=== PATIENT | male | born 1970 | race Caucasian/White ===

== ENCOUNTER → 2020-11-05 | Outpatient (CLI) | payer OTHER | LOC: LAB SHORT 16:02 | PROVIDERS: Physician Assistant | DX: Z11.3 Encounter for screening for infections with a predominantly sexual mode of transmission (principal) | CPT/HCPCS: 87491; 87591 ==

== ENCOUNTER → 2020-11-07 | Outpatient (CLI) | payer SELFPAY | END | disposition home or self-care (01) | LOC: LAB SHORT 09:55 | DX: J02.9 Acute pharyngitis, unspecified (principal) | CPT/HCPCS: 87081 ==

== ENCOUNTER 2021-10-14 19:47 | Emergency (ER) | payer BC ==
[~2021-10-14] VITALS: Ht 182.9 cm; Wt 119.8 kg
[2021-10-14 20:20] LABS: BASOPHILS ABSOLUTE AUTO 0.08 K/mm3 (0.00-0.23); BASOPHILS PERCENT AUTO 1 % (0-2); EOSINOPHILS ABSOLUTE AUTO 0.01 K/mm3 (0.00-0.68); EOSINOPHILS PERCENT AUTO 0 % (0-6); IMMATURE GRAN ABSOLUTE AUTO 0.05 K/mm3 (0.00-0.10); IMMATURE GRAN PERCENT AUTO 0 % (0-1); LYMPHOCYTES ABSOLUTE AUTO 2.76 K/mm3 (0.84-5.20); LYMPHOCYTES PERCENT AUTO 22 % (21-46); MONOCYTES ABSOLUTE AUTO 1.07 K/mm3 (0.16-1.47); MONOCYTES PERCENT AUTO 9 % (4-13); Mean Corpuscular HGB 27.3 pg (26.0-34.0); Mean Corpuscular HGB Conc 32.2 g/dL (31.5-36.5); Mean Corpuscular Volume 85 fL (80-100); NEUTROPHILS ABSOLUTE AUTO 8.39 K/mm3 (1.96-9.15); NEUTROPHILS PERCENT AUTO 68 % (41-73); Platelet Count 285 K/mm3 (150-400); RDW Coefficient Variation 19.2 % (11.7-14.2); RDW Standard Deviation 55.4 fL (35.1-46.3); White Blood Cell Count 12.36 K/mm3 (4.00-11.30)
[2021-10-14 20:23] LABS: Hematocrit 55.9 % (37.0-53.0)
[2021-10-14 20:37] LABS: Albumin, Blood 3.4 g/dL (3.4-5.0); Albumin/Globulin Ratio 0.9 (0.8-1.8); Bilirubin, Total 0.8 mg/dL (0.1-1.0); Bun/Creatinine Ratio 14.1 (12.0-20.0); Calcium, Blood 9.2 mg/dL (8.5-10.1); Creatinine, Blood 1.28 mg/dL (0.60-1.20); Globulin, Blood 3.8 g/dL (2.2-4.0); Potassium, Blood 3.6 mmol/L (3.5-5.5); Total Protein, Blood 7.2 g/dL (6.4-8.2)
== END 2021-10-15 01:34 | disposition home or self-care (01) ==
LOC: ER 19:47
PROVIDERS: Physician Assistant
DX: R07.89 Other chest pain (principal)
CPT/HCPCS: 36415; 71045; 71260; 80053; 83880; 84484; 85025; 93005; 93010; J1885; J7030; Q9967

== ENCOUNTER 2023-06-04 06:53 | Inpatient (IN) | payer BC ==
[2023-06-04] VITALS (7 sets, daily range): BP systolic 103–134; BP diastolic 79–100
[~2023-06-04] VITALS: Ht 185.4 cm; Wt 123.7 kg
[2023-06-04] MEDS ORDERED: AMLO5 PO (07:10)
[2023-06-04] MEDS ORDERED: ZOLP12.5 PO (07:10)
[2023-06-04] MEDS ORDERED: LOSA25 PO (07:10)
[2023-06-04] MEDS ORDERED: TOPROL XL200 MG PO (07:11)
[2023-06-04] MEDS ORDERED: AMLO10 (07:11)
[2023-06-04] MEDS ORDERED: DIVA500EC PO (07:16)
[2023-06-04] MEDS ORDERED: DICL75ER PO (07:17)
[2023-06-04 07:19] LABS: BASOPHILS PERCENT AUTO 1 % (0-2); EOSINOPHILS ABSOLUTE AUTO 0.05 K/mm3 (0.00-0.68); EOSINOPHILS PERCENT AUTO 0 % (0-6); Hemoglobin 17.7 g/dL (13.5-17.5); IMMATURE GRAN ABSOLUTE AUTO 0.07 K/mm3 (0.00-0.10); IMMATURE GRAN PERCENT AUTO 1 % (0-1); LYMPHOCYTES ABSOLUTE AUTO 2.42 K/mm3 (0.84-5.20); LYMPHOCYTES PERCENT AUTO 19 % (21-46); MONOCYTES ABSOLUTE AUTO 1.01 K/mm3 (0.16-1.47); MONOCYTES PERCENT AUTO 8 % (4-13); Mean Corpuscular HGB 29.2 pg (26.0-34.0); Mean Corpuscular HGB Conc 32.1 g/dL (31.5-36.5); Mean Corpuscular Volume 91 fL (80-100); Mean Platelet Volume 10.2 fL (9.1-12.4); NEUTROPHILS ABSOLUTE AUTO 9.09 K/mm3 (1.96-9.15); NEUTROPHILS PERCENT AUTO 71 % (41-73); Platelet Count 296 K/mm3 (150-400); RDW Coefficient Variation 16.3 % (11.7-14.2); RDW Standard Deviation 54.7 fL (35.1-46.3); Red Blood Cell Count 6.06 M/mm3 (4.30-5.90); White Blood Cell Count 12.74 K/mm3 (4.00-11.30)
[2023-06-04 07:21] LABS: Hematocrit 55.1 % (37.0-53.0)
[2023-06-04] MEDS ORDERED: NS 1,000 ML IV SCH (07:25)
[2023-06-04] MEDS ORDERED: dilTIAZem HCL 125 MG in Dextrose 5% 100 ML IV SCH (07:25)
[2023-06-04] MEDS ORDERED: Diltiazem HCl 5 MG / ML 5ML Vial IV ONE (07:25)
[2023-06-04 07:37] LABS: Albumin, Blood 3.3 g/dL (3.4-5.0); Albumin/Globulin Ratio 0.8 (0.8-1.8); Bilirubin, Total 0.7 mg/dL (0.1-1.0); Bun/Creatinine Ratio 17.8 (12.0-20.0); Calcium, Blood 8.8 mg/dL (8.5-10.1); Creatinine, Blood 1.35 mg/dL (0.60-1.20); Globulin, Blood 4.1 g/dL (2.2-4.0); Potassium, Blood 3.8 mmol/L (3.5-5.5); Total Protein, Blood 7.4 g/dL (6.4-8.2)
[2023-06-04] MEDS ORDERED: Furosemide 10 MG / ML 2ML Vial IV ONE (09:20)
[2023-06-04] MEDS ORDERED: Acetaminophen 325 MG TABLET PO PRN (11:10)
[2023-06-04] MEDS ORDERED: Zolpidem Tartrate 10 MG Tab PO PRN (11:40)
[2023-06-04] MEDS ORDERED: Empagliflozin 10 MG TAB PO SCH (12:00)
[2023-06-04] MEDS ORDERED: Furosemide 10 MG / ML 2ML Vial IV SCH (12:00)
[2023-06-04] MEDS ORDERED: Potassium Chloride 20 MEQ TabCR PO ONE (12:00)
[2023-06-04] MEDS ORDERED: Metoprolol Tartrate 25 MG Tab PO SCH (12:00)
[2023-06-04] MEDS ORDERED: Metoprolol Tartrate 50 MG Tab PO SCH (12:00)
[2023-06-04] MEDS ORDERED: Divalproex Sodium 500 MG TABLET.DR PO SCH (12:00)
[2023-06-04 12:45] LABS: Anti-Xa UFH, PHA Monitoring <0.10 IU/mL; International Normalized Ratio 1.07; Prothrombin Time Results 11.4 Sec (9.7-11.5)
[2023-06-04] MEDS ORDERED: Dose Adjust by Pharmacy XX STA (12:57)
[2023-06-04] MEDS ORDERED: Heparin Sodium 5000 Units/ML 1ML MDV IV ONE (13:00)
[2023-06-04] MEDS ORDERED: Heparin Sodium,Porcine/0.5 NS 500 ML IV SCH (13:00)
--- NOTE | 2023-06-04 13:30 | NUR ---
ADMISSION: PT ARRIVED TO PCU 1 @1225. ABLE TO TRANSFER FROM [facility] TO [facility]OSP[facility] BED VIA ONE PERSON ASSIST. BP STABLE, PT ARRIVED TO UNIT AFIB 130'S WITH DILT GTT @10MG/HR. DILT INCREASED TO 15MG/HR BY THIS RN. DENIES CP/PRESSURE. PULSES STRONG AND EQUAL THROUGHOUT. +1 EDEMA NOTED IN BLE. SPO2 >96% ON ROOM AIR. LUNG SOUNDS CLEAR IN UPPER, DIM IN BASES. RESPIRATIONS EVEN AND UNLABORED. AFEBRILE. ABD SOFT NON TENDER, BOWEL SOUNDS +. PARTNER AT BEDSIDE AND UPDATED ON PT PLAN OF CARE WITH PERMISSION. ORIENTED TO ROOM AND CALL LIGHT SYSTEM. BED IN LOW, CALL LIGHT IN REACH.
[2023-06-04] MEDS ORDERED: Propofol 10mg/ml 20 ml Vial (Procedural) IV ONE (15:00)
[2023-06-04] MEDS ORDERED: Insulin Regular 100 UNIT/ML 10ML Vial SC SCH (16:30)
--- NOTE | 2023-06-04 16:56 | NUR ---
SHIFT SUMMARY: NO ACUTE CHANGES SINCE ADMISSION. PT REMAINS AFIB 110-120'S. DILT GTT @15MG/HR. BP STABLE. HEPARIN INFUSING @ 15UNITS/KG/HR. AFEBRILE. SPO2 >96% ON ROOM AIR. RESPIRATIONS EVEN AND UNLABORED. PT WITH ADEQUATE URINARY OUTPUT THIS SHIFT, APRROX 800ML. NO BM. PILOT SUPERVISOR AT BEDSIDE THIS AFTERNOON, UNABLE TO COMPLETE ECHO DUE TO HIGH HR. WILL ATTEMPT AGAIN IN AM. PT IND TO AND FROM BATHROOM. PARTNER REMAINS AT BEDSIDE. BED IN LOW, CALL LIGHT IN REACH, WILL REPORT TO ONCOMING RN.
[2023-06-05 03:12] LABS: BASOPHILS ABSOLUTE AUTO 0.12 K/mm3 (0.00-0.23); BASOPHILS PERCENT AUTO 1 % (0-2); EOSINOPHILS ABSOLUTE AUTO 0.07 K/mm3 (0.00-0.68); EOSINOPHILS PERCENT AUTO 1 % (0-6); Hematocrit 51.2 % (37.0-53.0); Hemoglobin 16.5 g/dL (13.5-17.5); IMMATURE GRAN ABSOLUTE AUTO 0.15 K/mm3 (0.00-0.10); IMMATURE GRAN PERCENT AUTO 1 % (0-1); LYMPHOCYTES PERCENT AUTO 19 % (21-46); MONOCYTES ABSOLUTE AUTO 1.38 K/mm3 (0.16-1.47); MONOCYTES PERCENT AUTO 10 % (4-13); Mean Corpuscular HGB 28.8 pg (26.0-34.0); Mean Corpuscular HGB Conc 32.2 g/dL (31.5-36.5); Mean Corpuscular Volume 90 fL (80-100); Mean Platelet Volume 10.2 fL (9.1-12.4); NEUTROPHILS ABSOLUTE AUTO 9.83 K/mm3 (1.96-9.15); NEUTROPHILS PERCENT AUTO 69 % (41-73); Platelet Count 268 K/mm3 (150-400); RDW Standard Deviation 53.1 fL (35.1-46.3); Red Blood Cell Count 5.72 M/mm3 (4.30-5.90); White Blood Cell Count 14.25 K/mm3 (4.00-11.30)
[2023-06-05 03:29] LABS: Albumin/Globulin Ratio 0.8 (0.8-1.8); Bilirubin, Total 0.8 mg/dL (0.1-1.0); Bun/Creatinine Ratio 14.6 (12.0-20.0); Calcium, Blood 8.3 mg/dL (8.5-10.1); Creatinine, Blood 1.23 mg/dL (0.60-1.20); Globulin, Blood 3.8 g/dL (2.2-4.0); Potassium, Blood 3.7 mmol/L (3.5-5.5); Total Protein, Blood 6.8 g/dL (6.4-8.2)
[2023-06-05 03:31] VITALS: BP 117/88
--- NOTE | 2023-06-05 03:55 | NUR ---
SHIFT SUMMARY ASSUMED CARE OF PT @ 1900. PT ALERT & ORIENTED x4, COOPERATIVE WITH CARES, DENIES PAIN, CALL LIGHT APPROPRIATE. SP02 > 90% ON RA, PT COMPLAINED OF SOME DYSPNEA WITH TACHYPNEA, PUT ON 2L VIA NC WITH IMPROVEMENT OF SYMPTOMS. REMAINS ON DILTIAZEM @ 15, AFIB ON TELE WITH HR 100'S - 120'S. BP STABLE. FEBRILE AT BEGINNING OF SHIFT WITH TMAX 100F, RESOLVED WITH TYLENOL. TRACE TO 1+ EDEMA TO BLE, PT STATES THIS IS HIS NORMAL. HEPARIN GTT INFUSING @ 17 U/KG/HR, ADJUSTMENTS PER PHARMACY. PT HAD DIFFICULTY SLEEPING THROUGHOUT NIGHT DESPITE TAKING HIS AMBIEN ORDERED. OTHERWISE, NO ACUTE EVENTS OVERNIGHT.
[2023-06-05 07:18] VITALS: BP 109/86
[2023-06-05] MEDS ORDERED: Losartan Potassium 25 MG Tab PO SCH (09:00)
[2023-06-05] MEDS ORDERED: Furosemide 10 MG/ML 4ML Vial IV SCH (09:00)
[2023-06-05] MEDS ORDERED: Heparin Sodium,Porcine 5,000 UNIT/0.5 ML SDV SC SCH (09:00)
[2023-06-05] MEDS ORDERED: Potassium Chloride 20 MEQ TabCR PO ONE (09:00)
[2023-06-05] MEDS ORDERED: Furosemide 10 MG / ML 2ML Vial IV SCH ×2 (09:35→17:00)
[2023-06-05] MEDS ORDERED: Dose Adjust by Pharmacy XX STA (11:12)
[2023-06-05 11:30] VITALS: BP 122/93
--- NOTE | 2023-06-05 17:20 | NUR ---
SHIFT SUMMARY: PT REMAINS ALERT AND ORIENTED X4, ABLE TO FOLLOW COMMANDS AND MAKE NEEDS KNOWN. COOPERATIVE WITH CARE. BP STABLE. HR REMAINS AFIB 110-120'S. DILT D/C THIS AM. AMIO GTT @16.7 ML/HR. TOLERATING WELL. AFEBRILE. SPO2 >98% ON ROOM AIR. RESPIRATIONS EVEN AND UNLABORED. ECHO COMPLETED THIS AFTERNOON. PT REMAINS IND INSIDE ROOM, ABLE TO WALK TO BATHROOM, GOOD URINARY OUTPUT APPROX 1200 ML OUT. NO BM. PARTNER SHEILA AT BEDSIDE THIS EVENING, UPDATED ON PT PLAN OF CARE. PT CURRENTLY SITTING IN RECLINER EATING DINNER. CALL LIGHT IN REACH, WILL REPORT TO ONCOMING RN.
[2023-06-05 19:43] VITALS: BP 121/89
[2023-06-05 23:42] VITALS: BP 121/94
[2023-06-06] VITALS (8 sets, daily range): BP systolic 110–133; BP diastolic 83–103
[2023-06-06 05:03] LABS: Hematocrit 51.2 % (37.0-53.0); Hemoglobin 16.6 g/dL (13.5-17.5); Mean Platelet Volume 9.9 fL (9.1-12.4); Platelet Count 266 K/mm3 (150-400)
--- NOTE | 2023-06-06 05:15 | NUR ---
1915 Assumed care of patient, eve report completed. Shift plan of care reviewed withpatient, all questions answered. Pt with unevenful shift though did not appear to sleep well due to IV pump alarms and multiple nursing interventions. HR remains elevated 110-130s, and can jump into 140s with activity. Pt has repeadedly denied pain though reports fatigue and frustration over circumstamces. Therapeutic listening, mocing IV site and clustering care appears to have helped somewhat. Please see full assessment for additional details. No further complaints or concerns at this time, will continue to monitor.
[2023-06-06 05:24] LABS: Albumin/Globulin Ratio 0.8 (0.8-1.8); Bilirubin, Total 0.6 mg/dL (0.1-1.0); Bun/Creatinine Ratio 15.7 (12.0-20.0); Calcium, Blood 8.5 mg/dL (8.5-10.1); Creatinine, Blood 1.34 mg/dL (0.60-1.20); Globulin, Blood 3.9 g/dL (2.2-4.0); Potassium, Blood 3.7 mmol/L (3.5-5.5); Total Protein, Blood 6.9 g/dL (6.4-8.2)
[2023-06-06] MEDS ORDERED: Dose Adjust by Pharmacy XX STA ×3 (05:31→19:01)
[2023-06-06] MEDS ORDERED: Zolpidem Tartrate 5 MG Tab PO PRN (08:40)
[2023-06-06] MEDS ORDERED: Amiodarone HCl 200 MG Tab PO SCH (09:00)
[2023-06-06] MEDS ORDERED: Metoprolol Succinate 50 MG TABCR PO SCH (09:00)
[2023-06-06] MEDS ORDERED: Potassium Chloride 10 Meq Tablet SA PO SCH (17:00)
--- NOTE | 2023-06-06 17:01 | NUR ---
SHIFT SUMMARY: PT REMAINS ALERT AND ORIENTED X4, ABLE TO FOLLOW COMMANDS AND MAKE NEEDS KNOWN. BP STABLE. AFEBRILE. SPO2 >98% ON ROOM AIR. RESPIRATIONS EVEN AND UNLABORED. HR REMAINS AFIB 130'S. CARDIOLOGY CONSULTED THIS AM. PLAN FOR ROHINI/CARDIOVERSION 06/07/23. NPO AT MIDNIGHT. PT AWARE. CBG STABLE THIS SHIFT. ADQUATE URINARY OUTPUT, NO BM. PARTNER SHEILA AT BEDSIDE THIS EVENING, UPDATED ON PT PLAN OF CARE. BED IN LOW, CALL LIGHT IN REACH, WILL REPORT TO ONCOMING RN.
--- NOTE | 2023-06-06 23:08 | NUR ---
ASSUMPTION OF CARE AFTER RECEIVING REPORT FROM TRA RN, THIS RN ASSUMED CARE AT APPROX 1915. PATIENT ALERT AND ORIENTED X4. INDEPENDENT IN ROOM, WITH ADLs. PO AMBIEN ADMINISTERED PER EMAR FOR INSOMNIA. TELEMETRY SHOWING AFIB 110s-130s. PATIENT REPORTS MILD, INTERMITTENT CHEST PALPITATIONS WITH RATE INCREASE. BP STABLE. PO AMIODARONE ADMINISTERED PER EMAR. NPO AT MIDNIGHT FOR ROHINI/CARDIOVERSION TOMORROW. HEPARIN GTT INFUSING PER EMAR. ON ROOM AIR, SATs >90%. RESPIRATIONS EVEN, UNLABORED. CALL LIGHT IN REACH.
[2023-06-07] VITALS (10 sets, daily range): BP systolic 110–138; BP diastolic 86–104
[2023-06-07 01:14] LABS: BASOPHILS ABSOLUTE AUTO 0.14 K/mm3 (0.00-0.23); BASOPHILS PERCENT AUTO 1 % (0-2); EOSINOPHILS ABSOLUTE AUTO 0.04 K/mm3 (0.00-0.68); EOSINOPHILS PERCENT AUTO 0 % (0-6); Hematocrit 51.4 % (37.0-53.0); Hemoglobin 16.7 g/dL (13.5-17.5); IMMATURE GRAN ABSOLUTE AUTO 0.24 K/mm3 (0.00-0.10); IMMATURE GRAN PERCENT AUTO 2 % (0-1); LYMPHOCYTES ABSOLUTE AUTO 2.86 K/mm3 (0.84-5.20); LYMPHOCYTES PERCENT AUTO 21 % (21-46); MONOCYTES ABSOLUTE AUTO 1.26 K/mm3 (0.16-1.47); MONOCYTES PERCENT AUTO 9 % (4-13); Mean Corpuscular HGB 28.9 pg (26.0-34.0); Mean Corpuscular HGB Conc 32.5 g/dL (31.5-36.5); Mean Corpuscular Volume 89 fL (80-100); Mean Platelet Volume 9.9 fL (9.1-12.4); NEUTROPHILS ABSOLUTE AUTO 9.19 K/mm3 (1.96-9.15); NEUTROPHILS PERCENT AUTO 67 % (41-73); Platelet Count 268 K/mm3 (150-400); RDW Coefficient Variation 15.8 % (11.7-14.2); RDW Standard Deviation 52.1 fL (35.1-46.3); Red Blood Cell Count 5.78 M/mm3 (4.30-5.90); White Blood Cell Count 13.73 K/mm3 (4.00-11.30)
[2023-06-07 02:03] LABS: Bun/Creatinine Ratio 18.2 (12.0-20.0); Calcium, Blood 8.1 mg/dL (8.5-10.1); Creatinine, Blood 1.32 mg/dL (0.60-1.20); Magnesium, Blood 2.2 mg/dL (1.6-2.4); Potassium, Blood 3.7 mmol/L (3.5-5.5)
--- NOTE | 2023-06-07 04:34 | NUR ---
SHIFT SUMMARY NO ACUTE EVENTS SINCE ASSUMPTION OF CARE. PATIENT SLEPT THROUGHOUT SHIFT. EASILY AROUSABLE WITH VERBAL STIMULI. INDEPENDENT WITH ALL ADLs. TELEMETRY SHOWING AFIB 110s-130s. BP STABLE, SBP 110s-120s. NPO SINCE MIDNIGHT FOR ROHINI/CARDIOVERSION TODAY. CARDIOLOGY CONSULT PLACED VIA ANSWERING SERVICE AT APPROX 0030. HEPARIN GTT INFUSING PER EMAR. REMAINS ON ROOM AIR, SATs >90%. RESPIRATIONS EVEN, UNLABORED. VOIDING. NO BM THIS SHIFT. CALL LIGHT IN REACH. WILL CONTINUE TO MONITOR AND REPORT TO ONCOMING RN.
[2023-06-07] MEDS ORDERED: NS 1,000 ML IV ONE (12:10)
[2023-06-07] MEDS ORDERED: Benzocaine Oral Spray 0.5ML UD ONE (12:18)
--- NOTE | 2023-06-07 13:39 | NUR ---
PT BACK TO PCU VIA [facility], AWAKE AND COMMUNICATING WITH STAFF. REPORT TO TRAVIS, CHAIN SALES REPRESENTATIVE
[2023-06-07] MEDS ORDERED: Rivaroxaban 10 MG Tab PO SCH (14:10)
[2023-06-07] MEDS ORDERED: Amiodarone HCl200 MG PO (15:49)
[2023-06-07] MEDS ORDERED: JARDIANCE10 MG PO (15:50)
[2023-06-07] MEDS ORDERED: XARELTO20 MG PO (15:50)
[2023-06-07] MEDS ORDERED: KLOR-CON 1010 ME9 PO (15:51)
[2023-06-07] MEDS ORDERED: FURO20 PO (15:51)
--- NOTE | 2023-06-07 18:57 | NUR ---
Discharge note. Pt had ROHINI with cardioversion this afternoon. Before procedure, HR was 110-140s after HR was was controlled in the 80s. Denies CP or SOB. Large amount of education given to Pt and family. All belongings were taken with Pt. Pt was escorted to main door.
== END 2023-06-07 18:30 | disposition home or self-care (01) | DRG 291 ==
LOC: ER 06:53 → PCU 06:54
PROVIDERS: Student in an Organized Health Care Education/Training Program; ADMIT Internal Medicine
PROC: 5A2204Z Restoration of Cardiac Rhythm, Single (ICD-10-PCS; principal; 2023-06-07)
PROC: 5A0935A Assistance with Respiratory Ventilation, Less than 24 Consecutive Hours, High Flow/Velocity Cannula (ICD-10-PCS; 2023-06-07)
DX: I13.0 Hypertensive heart and chronic kidney disease with heart failure and stage 1 through stage 4 chronic kidney disease, or unspecified chronic kidney disease (principal); I50.21 Acute systolic (congestive) heart failure; J96.01 Acute respiratory failure with hypoxia; I48.91 Unspecified atrial fibrillation; E11.22 Type 2 diabetes mellitus with diabetic chronic kidney disease; E11.42 Type 2 diabetes mellitus with diabetic polyneuropathy; G47.00 Insomnia, unspecified; N18.2 Chronic kidney disease, stage 2 (mild); G40.909 Epilepsy, unspecified, not intractable, without status epilepticus; Z79.899 Other long term (current) drug therapy; E66.9 Obesity, unspecified; Z99.81 Dependence on supplemental oxygen; Z68.35 Body mass index [BMI] 35.0-35.9, adult
CPT/HCPCS: 36415; 71046; 80048; 80053; 82947; 83735; 83880; 84145; 84443; 84484; 85014; 85018; 85025; 85049; 85520; 85610; 85730; 93005; 93010; 93306; 93312; 93325; 94762; 96365; 96366; 96368; 96375; 96376; 99285-25; A9270; G0378; J0282; J1644; J1815; J1940; J2704; J7030; J7060

== ENCOUNTER → 2023-06-16 | Outpatient (CLI) | payer BC ==
[~2023-06-16] MED LIST: AMLO10; AMLO5 PO; Amiodarone HCl200 MG PO; DICL75ER PO; DIVA500EC PO; FURO20 PO; JARDIANCE10 MG PO; KLOR-CON 1010 ME9 PO; LOSA25 PO; TOPROL XL200 MG PO; XARELTO20 MG PO; ZOLP12.5 PO
[2023-06-16 08:23] LABS: BASOPHILS ABSOLUTE AUTO 0.12 K/mm3 (0.00-0.23); BASOPHILS PERCENT AUTO 1 % (0-2); EOSINOPHILS ABSOLUTE AUTO 0.14 K/mm3 (0.00-0.68); EOSINOPHILS PERCENT AUTO 1 % (0-6); Hemoglobin 18.9 g/dL (13.5-17.5); IMMATURE GRAN ABSOLUTE AUTO 0.06 K/mm3 (0.00-0.10); IMMATURE GRAN PERCENT AUTO 1 % (0-1); LYMPHOCYTES ABSOLUTE AUTO 2.01 K/mm3 (0.84-5.20); LYMPHOCYTES PERCENT AUTO 18 % (21-46); MONOCYTES ABSOLUTE AUTO 1.01 K/mm3 (0.16-1.47); MONOCYTES PERCENT AUTO 9 % (4-13); Mean Corpuscular HGB 28.4 pg (26.0-34.0); Mean Corpuscular HGB Conc 32.1 g/dL (31.5-36.5); Mean Corpuscular Volume 89 fL (80-100); Mean Platelet Volume 9.9 fL (9.1-12.4); NEUTROPHILS ABSOLUTE AUTO 7.97 K/mm3 (1.96-9.15); NEUTROPHILS PERCENT AUTO 71 % (41-73); Platelet Count 267 K/mm3 (150-400); RDW Coefficient Variation 16.5 % (11.7-14.2); RDW Standard Deviation 48.5 fL (35.1-46.3); Red Blood Cell Count 6.65 M/mm3 (4.30-5.90); White Blood Cell Count 11.31 K/mm3 (4.00-11.30)
[2023-06-16 08:25] LABS: Hematocrit 58.9 % (37.0-53.0)
[2023-06-16 08:34] LABS: Albumin, Blood 3.5 g/dL (3.4-5.0); Albumin/Globulin Ratio 0.7 (0.8-1.8); Bilirubin, Total 0.7 mg/dL (0.1-1.0); Bun/Creatinine Ratio 14.3 (12.0-20.0); Calcium, Blood 9.1 mg/dL (8.5-10.1); Creatinine, Blood 1.54 mg/dL (0.60-1.20); Globulin, Blood 4.7 g/dL (2.2-4.0); Potassium, Blood 4.1 mmol/L (3.5-5.5); Total Protein, Blood 8.2 g/dL (6.4-8.2)
== END ==
LOC: LAB 08:19 → LAB SHORT 08:19
PROVIDERS: Physician Assistant
DX: R07.9 Chest pain, unspecified (principal)
CPT/HCPCS: 80053; 83880; 84484; 85025

== ENCOUNTER → 2023-12-06 | Outpatient (CLI) | payer BC ==
[2023-12-06 18:19] LABS: Influenza A, PCR NEGATIVE (NEGATIVE); Influenza B, PCR NEGATIVE (NEGATIVE); Resp Syncytial Virus, PCR NEGATIVE (NEGATIVE); SARS-Cov-2 (COVID-19) PCR, MMC NEGATIVE (NEGATIVE)
== END ==
LOC: LAB SHORT 16:09 → LAB 16:09
PROVIDERS: Registered Nurse
DX: R05.9 Cough, unspecified (principal); R50.9 Fever, unspecified; J02.9 Acute pharyngitis, unspecified
CPT/HCPCS: 0241U